=== PATIENT | female | born 1935 | race African-American/Black ===

== ENCOUNTER 2021-04-01 12:29 | Emergency (ER) | payer MEDICARE, OTHER ==
[~2021-04-01] VITALS: Ht 165.1 cm; Wt 56.7 kg
[~2021-04-01 12:29] MED LIST: ATIVAN; LOTENSIN; [UNRECOGNIZED DRUG - OTHER]
--- NOTE | 2021-04-01 12:40 | NUR ---
85/F biba for c/o generalized weakness. Per EMS patient was at [facility] and began to feel dizzy, patient states she notified the staff at which they aided her to sit on the ground. Patient denies fall, able to recall what happened. Patient is alert and oriented x4, able to answer questions appropriately. Patient denies pain, states she still feels dizzy, states she forgot to take her blood pressure medication at home this morning. Patient placed in gown on bedside bus monitor, blood pressure 209/98, pulse 81, O2 saturation 98% on room air.
[2021-04-01 12:44] VITALS: BP 209/98
--- NOTE | 2021-04-01 12:44 | NUR ---
PT TAKEN TO CT SCAN VIA [facility].
--- NOTE | 2021-04-01 12:45 | NUR ---
PT WAS TAKEN TO CT FOR CODE BRAIN.
--- NOTE | 2021-04-01 13:04 | NUR ---
DAUGHTER: [phone]
--- NOTE | 2021-04-01 13:08 | NUR ---
PT SPEAKING WITH [employer] AT THIS TIME.
[2021-04-01 13:13] LABS: BASOPHILS % (AUTO) 1.1 % (0.0-2.0); EOSINOPHILS # (AUTO) 0.1 K/uL (0-0.4); EOSINOPHILS % (AUTO) 1.6 % (0.0-4.0); HEMATOCRIT 26.9 % (36-48); HEMOGLOBIN 8.9 g/dL (12.0-16.0); LYMPHOCYTES # (AUTO) 0.6 K/uL (2.5-16.5); LYMPHOCYTES % (AUTO) 16.6 % (20.5-51.1); MEAN CORPUSCULAR HEMOGLOBIN 26 pg (27-31); MEAN CORPUSCULAR HGB CONC 33 g/dL (33-37); MEAN CORPUSCULAR VOLUME 77.3 fL (80-94); MONOCYTES # (AUTO) 0.4 K/uL (0.8-1.0); MONOCYTES % (AUTO) 11.2 % (1.7-9.3); NEUTROPHILS # (AUTO) 2.3 K/uL (1.8-7.7); NEUTROPHILS % (AUTO) 69.5 % (42.2-75.2); PLATELET COUNT (AUTO) 220 K/uL (140-450); RED BLOOD CELL COUNT(AUTO) 3.48 MIL/uL (4.20-5.40); RED CELL DISTRIBUTION WIDTH 15.7 % (11.6-13.7); WHITE BLOOD COUNT (AUTO) 3.3 K/uL (4.8-10.8)
[2021-04-01] MEDS ORDERED: ASPIRIN 325 MG TAB PO ONE (13:15)
[2021-04-01] MEDS ORDERED: ATORVASTATIN 80 MG TAB PO SCH (13:15)
[2021-04-01 13:24] LABS: ALBUMIN 3.5 g/dL (3.4-5.0); ANION GAP 8.3 (8-16); ASPARTATE AMINOTRANSFERASE 16 U/L (15-37); CARBON DIOXIDE 28.9 mmol/L (21-32); CHLORIDE 100 mmol/L (98-107); CREATININE 0.9 mg/dL (0.6-1.3); GLUCOSE 84 mg/dL (74-106); POTASSIUM 4.2 mmol/L (3.5-5.1); PROTHROMBIN TIME 10.2 secs (10.8-13.4); SODIUM SERUM 133 mmol/L (136-145); TOTAL BILIRUBIN 0.3 mg/dL (0.0-1.0); UREA NITROGEN, BLOOD 21 mg/dL (7-18)
[2021-04-01] MEDS ORDERED: ATORVASTATIN 20 MG TAB ONE (13:29)
--- NOTE | 2021-04-01 13:50 | NUR ---
DAUGHTER AT BEDSIDE.
--- NOTE | 2021-04-01 14:00 | NUR ---
Candie lopez colleted and handed to recyclable materials sorter.
[2021-04-01 14:14] LABS: APPEARANCE,URINE CLEAR (CLEAR); BILIRUBIN,URINE NEGATIVE (NEGATIVE); BLOOD, URINE NEGATIVE (NEGATIVE); COLOR,URINE YELLOW (YELLOW); LEUKOCYTE ESTERASE ,URINE NEGATIVE (NEGATIVE); NITRITE, URINE NEGATIVE (NEGATIVE); PH,URINE 6.5 (5.0-9.0); UGLUCOSE NEGATIVE (NEGATIVE)
[2021-04-01] MEDS ORDERED: hydrALAZINE 20 MG/ML VIAL IVP ONE (15:50)
[2021-04-01] MEDS ORDERED: ACETAMINOPHEN 325 MG TAB PO ONE (15:50)
--- NOTE | 2021-04-01 15:55 | NUR ---
PT C/O HEADACHE. DR. GARCIA MADE AWARE. DR. GARCIA MADE AWARE OF PATIENT'S BP OF 232/97.
[2021-04-01 18:55] VITALS: BP 157/80
--- NOTE | 2021-04-01 19:07 | NUR ---
Spoke with Valarie from [facility] for updated vitals and patient status.
--- NOTE | 2021-04-01 19:07 | NUR ---
Pt report given to Lakhwinder. Transfer of care at this time.
--- NOTE | 2021-04-01 19:19 | NUR ---
s/w Dulce Maria SUTHERLAND from [facility].pt will be transported ER to ER under the care of Dr. Priscilla Fernandez.
--- NOTE | 2021-04-01 19:39 | NUR ---
[facility] unit [facility] Neda Landrum arrived to our ER for pt transfer. report given to him. pt will be going to [facility] Tele unit room 318 under the care of Dr. Fernandez and Dulce Maria SUTHERLAND.
--- NOTE | 2021-04-01 20:23 | NUR ---
PT TAKEN BY [facility] TO [facility]
== END 2021-04-01 20:23 | disposition short-term general hospital (02) ==
LOC: MED 12:29
DX: I63.9 Cerebral infarction, unspecified (principal); Z20.822 Contact with and (suspected) exposure to COVID-19; I10 Essential (primary) hypertension; Z88.0 Allergy status to penicillin; Z88.2 Allergy status to sulfonamides
CPT/HCPCS: 36415; 70450; 70496; 70498; 71045; 80053; 81003; 84484; 85025; 85610; 85730; 86886; 86900; 86901; 87426; 93005; 96374; 99291; J0360; Q9967